=== PATIENT | male | born 1950 | race Hispanic/Latino ===

== ENCOUNTER 2019-03-13 17:00 | Emergency (ER) | payer MEDICARE ==
[~2019-03-13] VITALS: Ht 177.8 cm; Wt 94.9 kg
--- OUTSIDE RECORDS SUMMARY | 2019-03-13 17:03 | XMS REPORT | Clinical Summary ---
Author Author [facility]Universal [facility] Organization [facility] Address Unknown Phone Unavailable Care Team Providers Care Headend Technician Name Role Phone Prakash Sheila Ruvalcaba PCP Unavailable Allergies No Known Allergies Medications End Date Status Medication Sig Dispensed Refills Start Date Active glimepiride (AMARYL) 1 MG Take 1 mg by 0 tablet mouth every morning before breakfast. Active aspirin 81 MG EC tablet Take 81 mg by 0 mouth daily. Active tamsulosin (FLOMAX) 0.4 Take 0.4 mg 0 mg Cp24 24 hr capsule by mouth daily. Active methimazole (TAPAZOLE) 10 Take 10 mg by 0 MG tablet mouth daily. Active lisinopril Take 5 mg by 0 (PRINIVIL,ZESTRIL) 5 MG mouth daily. tablet Active lithium 300 mg tablet Take 300 mg 0 by mouth 3 (three) times daily. Active saxagliptin 5 mg Tab Take by 0 mouth. Active atorvastatin (LIPITOR) 40 Take 40 mg by 0 MG tablet mouth daily. Active metFORMIN (GLUMETZA) 500 Take 1 tablet 30 tablet 0 05/25/201 MG (MOD) 24 hr tablet (500 mg 6 total) by mouth 2 (two) times daily with breakfast and dinner. Active Problems Problem Noted Date Abnormal nuclear stress test, inferior ischemia, EF 68%, 04/30/2016 05/22/2016 Essential hypertension 05/22/2016 ED (erectile dysfunction) 05/22/2016 DM (diabetes mellitus) 05/22/2016 Chronic kidney disease, stage III (moderate) 05/22/2016 s/p LHC: LM: NOD, LAD: NOD, LCx: 30% ostial OM3, RCA: 30% ostial PV-RCA, 05/22/2016 mild plaquing throughout, 05/22/2016 Social History Date Tobacco Use Types Packs/Day Years Used Current Every Day Smoker 0.5 40 Alcohol Use Drinks/Week oz/Week Comments No Sex Assigned at Date Recorded Not on file Industry Job Start Date Occupation Not on file Not on file Not on file Travel End Travel History Travel Start No recent travel history available. Last Filed Vital Signs Not on file Plan of Treatment Not on file Results Not on fileafter 03/12/2018 Insurance Payer Benefit Subscriber ID Type Phone Address Plan / Group [employer] xxxxxxxxxxx MEDICARE ADV Advance Directives For more information, please contact: [facility] [address] [place] [address] Date Inactivated Comments Code Status Date Activated 05/22/2016 8:42 PM Full Code 05/22/2016 7:17 AM This code status was determined by: Patient
--- NOTE | 2019-03-13 17:30 | NUR ---
Called [facility] to request a bed for the pt per Dr. Sen after talking to Dr. Sen.
--- NOTE | 2019-03-13 17:45 | NUR ---
Called [facility] to have support in case pt declines.
[2019-03-13] MEDS ORDERED: KETOROLAC TROMETHAMINE 30 MG/ML VIAL IV STA (17:53)
--- NOTE | 2019-03-13 18:03 | Diagnostic Imaging Report ---
A single frontal view of the chest. HISTORY: Muscles facets, chest pain COMPARISON: None available. DISCUSSION: Portable technique, limits sensitivity of the exam. Soft tissue attenuation partially limits sensitivity of the exam. Overlying monitoring leads. Tubes/Lines: None Lungs and pleura: Mildly low lung volumes result in bibasilar vascular crowding, accentuation of the pulmonary interstitial markings, central pulmonary vasculature, and the cardiac silhouette. Allowing for these limitations, the findings are as follows: No evidence of a consolidative pneumonia or pulmonary alveolar edema. No definite pleural effusion or pneumothorax is identified. Heart and mediastinum: The cardiac silhouette and central pulmonary vasculature appear(s) overlying enlarged. Bones and soft tissues: Appear unremarkable, given this limited exam. IMPRESSION: No acute radiographic abnormality. Signed by: Dr. Patrice Nolen D.O., M.M.M. on 03/13/2019 6:00 PM
[2019-03-13] MEDS ORDERED: METHIMAZOLE10 MG (18:14)
[2019-03-13] MEDS ORDERED: FINASTERIDE5 MG PO (18:14)
[2019-03-13] MEDS ORDERED: ASPIRIN81 MG (18:14)
[2019-03-13] MEDS ORDERED: LITHIUM CARBON600 MG (18:14)
[2019-03-13] MEDS ORDERED: ONGLYZA5 MG (18:14)
[2019-03-13] MEDS ORDERED: METFORMIN HCL500 M1 (18:14)
[2019-03-13] MEDS ORDERED: METFORMIN HCL500 M2 PO (18:14)
[2019-03-13] MEDS ORDERED: ATORVASTATIN CA20 MG PO (18:14)
[2019-03-13] MEDS ORDERED: AMLODIPINE BESYL5 MG PO (18:14)
[2019-03-13] MEDS ORDERED: SODIUM CHLORIDE 0.9% 100 ML 100 ML ONE (18:32)
[2019-03-13] MEDS ORDERED: IOPAMIDOL 370 MG/ML 200 ML INFUS..BTL INJ ONE (18:32)
[2019-03-13] MEDS ORDERED: SODIUM CHLORIDE 0.9% 50ML 50 ML ONE ×2 (18:32→18:38)
[2019-03-13] MEDS ORDERED: ONDANSETRON HCL INJ 2MG/ML 2ML 2 MG/ML VIAL ONE (18:36)
[2019-03-13] MEDS ORDERED: PROMETHAZINE HCL (IM) 25 MG/ML VIAL ONE (18:38)
--- NOTE | 2019-03-13 18:43 | NUR ---
left arm BP 187/78 right arm BP 182/77
[2019-03-13] MEDS ORDERED: FENTANYL CITRATE/PF 100MCG/2 ML INJ IV ONE (18:45)
[2019-03-13] MEDS ORDERED: PROMETHAZINE 12.5MG/ NACL 0.9% 12.5 MG/50 ML BAG IV ONE (18:45)
--- NOTE | 2019-03-13 19:02 | NUR ---
Report to EMILY Turner
--- NOTE | 2019-03-13 19:12 | NUR ---
Report to EMILY Gibbs at [phone] Kelli Nieves
[2019-03-13 19:29] VITALS: BP 150/70
== END 2019-03-13 19:32 | disposition other institution (70) ==
LOC: FSED 17:00
DX: M54.5 Low back pain (principal); E11.65 Type 2 diabetes mellitus with hyperglycemia; I10 Essential (primary) hypertension; R94.31 Abnormal electrocardiogram [ECG] [EKG]
CPT/HCPCS: 36415; 71045; 80053; 84443; 84484; 85025; 85610; 93005; 96374; 96375; 99284; J1885; J2550; J3010; Q9967; J2405